=== PATIENT | male | born 1965 | race Caucasian/White ===

== ENCOUNTER 2023-03-28 08:04 | Emergency (ER) | payer OTHER ==
[2023-03-28] MEDS ORDERED: Albuterol/Ipratropium 3.0-0.5 MG/3 ML Neb Soln NEB ONE (08:22)
[2023-03-28] MEDS ORDERED: Sodium Chloride 0.9% 10 ML Syringe FLUSH PRN (08:22)
[2023-03-28] MEDS ORDERED: Sodium Chloride 0.9% 2.5 ML Syringe FLUSH PRN (08:22)
[2023-03-28 08:44] LABS: BASOPHILS PERCENT AUTO 0.1 % (0.0-1.5); EOSINOPHILS ABSOLUTE AUTO 0.1 K/uL (0.0-0.7); EOSINOPHILS PERCENT AUTO 1.4 % (0.0-7.0); HEMOGLOBIN 14.4 g/dL (13.0-17.0); LYMPHOCYTES ABSOLUTE AUTO 1.5 K/uL (0.6-2.4); LYMPHOCYTES PERCENT AUTO 15.5 % (16.0-40.0); MEAN CORPUSCULAR HEMOGLOBIN 33.2 pg (27.0-32.0); MEAN CORPUSCULAR HGB CONC 35.1 g/dL (31.0-37.0); MEAN CORPUSCULAR VOLUME 94.5 fL (80.0-98.0); MONOCYTES PERCENT AUTO 10.2 % (0.0-15.0); NEUTROPHILS ABSOLUTE AUTO 7.1 K/uL (1.4-5.7); NEUTROPHILS PERCENT AUTO 72.8 % (48.0-80.0); NRBC ABSOLUTE 0 K/uL; PLATELET COUNT,PLT 176 K/uL (150-400); RED BLOOD CELL COUNT 4.34 M/uL (4.50-5.90); WHITE BLOOD CELL COUNT,WBC 9.78 K/uL (4.0-11.0)
[2023-03-28 09:14] LABS: A/G RATIO 1.1 (0.9-1.6); ALBUMIN 3.6 g/dL (3.4-5.0); BILIRUBIN TOTAL 0.6 mg/dL (0.2-1.0); CALCIUM 8.4 mg/dL (8.5-10.1); CARBON DIOXIDE,CO2 23.5 mmol/L (21.0-32.0); CREATININE 1.4 mg/dL (0.8-1.3); EST CRCL DRUG DOSING (CG) 64.21 mL/min; POTASSIUM,K 3.8 mmol/L (3.5-5.1); PROTEIN TOTAL,TP 6.9 g/dL (6.4-8.2)
== END 2023-03-28 11:15 | disposition home or self-care (01) ==
LOC: MW.ED 08:04
DX: J45.909 Unspecified asthma, uncomplicated (principal); F17.290 Nicotine dependence, other tobacco product, uncomplicated
CPT/HCPCS: 36415; 71046; 80053; 84484; 85025; 85379; 93005; 99285; J3490; 93010; 99283; J7620-GY